=== PATIENT | female | born 1985 | race American Indian/Alaskan Native ===

== ENCOUNTER 2019-01-11 03:43 | Emergency (ER) | payer MEDICAID, OTHER ==
[2019-01-11 03:52] VITALS: BP 132/94
[2019-01-11] MEDS ORDERED: TYLENOL ONE (03:55)
[2019-01-11] MEDS ORDERED: TYLENOL PO ONE (06:15)
[2019-01-11] MEDS ORDERED: ROXICODONE PO ONE (06:32)
--- NOTE | 2019-01-11 06:35 | Emergency Department Report ---
Blank Doc - Documentation Documentation: 34-year-old -[place] female presents to the emergency room complaining of left-sided jaw pain status post 5-year-old kicked her in the jaw. Patient reports the pain is 10 out of 10. X-ray of jaw and Walsh given for pain management.
--- NOTE | 2019-01-11 07:11 | XRay Report ---
PROCEDURE: XR MANDIBLE 4+V TECHNIQUE: 4 views of the mandible were obtained. HISTORY: trauma to jaw COMPARISONS: None FINDINGS: There is no evidence of fracture. The TMJs appear intact. The soft tissues are unremarkable. IMPRESSION: No acute findings.. This document is electronically signed by Tawanda Pascal MD., January 11 2019 07:09:02 AM ET
--- NOTE | 2019-01-11 08:14 | Emergency Department Report ---
ED ENT HPI - General Chief complaint: Dental/Oral Stated complaint: TOOTHACHE Time Seen by Provider: 01/11/19 06:30 Source: patient Mode of arrival: Ambulatory Limitations: No Limitations - History of Present Illness Initial comments: This is a 34-year-old after [place] female presents with right-sided facial pain since this morning. Patient states her 5-year-old son accidentally kicked the right side of her face while sleeping. She is now complaining of pain to the right side jaw. Patient states she was already having issues with her teeth on the right side and this is aggravated symptoms. She denies loss of consciousness, nausea or vomiting, visual changes, swelling, bruising, numbness or tingling. MD complaint: tooth pain -: Last night Location: tooth # (numbers 29 through 32) Severity: severe Severity scale (0 -10): 10 Quality: constant, other (throbbing) Consistency: constant Improves with: none Worsens with: movement Context- Dental: history of dental caries, trauma Associated Symptoms: toothache. denies: fever, cough, gum swelling, pain with swallowing, sore throat, tinnitus, hearing loss, discharge from ear, rhinorrhea - Related Data Home Medications Medication Instructions Recorded Confirmed Last Taken Acetaminophen [Tylenol] 325 mg PO DAILY PRN 09/02/13 09/02/13 08/30/13 325 mg Previous Rx's Medication Instructions Recorded Last Taken Type NIFEdipine XL [Procardia Xl] 60 mg PO QDAY #30 tablet 09/13/13 Unknown Rx Ibuprofen [Motrin 800 MG tab] 800 mg PO Q8HR PRN #20 tablet 01/11/19 Unknown Rx traMADol [Ultram 50 MG tab] 50 mg PO Q6HR PRN #12 tablet 01/11/19 Unknown Rx Allergies Allergy/AdvReac Type Severity Reaction Status Date / Time peanut Allergy Severe Rash Verified 09/02/13 11:21 amoxicillin AdvReac Rash Verified 01/11/19 06:35 ED Dental HPI - General Chief complaint: Dental/Oral Stated complaint: TOOTHACHE Time Seen by Provider: 01/11/19 06:30 Source: patient Mode of arrival: Ambulatory Limitations: No Limitations - Related Data Home Medications Medication Instructions Recorded Confirmed Last Taken Acetaminophen [Tylenol] 325 mg PO DAILY PRN 09/02/13 09/02/13 08/30/13 325 mg Previous Rx's Medication Instructions Recorded Last Taken Type NIFEdipine XL [Procardia Xl] 60 mg PO QDAY #30 tablet 09/13/13 Unknown Rx Ibuprofen [Motrin 800 MG tab] 800 mg PO Q8HR PRN #20 tablet 01/11/19 Unknown Rx traMADol [Ultram 50 MG tab] 50 mg PO Q6HR PRN #12 tablet 01/11/19 Unknown Rx Allergies Allergy/AdvReac Type Severity Reaction Status Date / Time peanut Allergy Severe Rash Verified 09/02/13 11:21 amoxicillin AdvReac Rash Verified 01/11/19 06:35 ED Review of Systems ROS: Stated complaint: TOOTHACHE Other details as noted in HPI Constitutional: denies: chills, fever ENT: dental pain. denies: ear pain, throat pain Respiratory: denies: cough, shortness of breath, wheezing Cardiovascular: denies: chest pain, palpitations Gastrointestinal: denies: abdominal pain, nausea, diarrhea Skin: denies: rash, lesions Neurological: denies: headache, weakness, paresthesias Psychiatric: denies: anxiety, depression ED Past Medical Hx - Past Medical History Previous Medical History?: Yes Hx Hypertension: No Hx Heart Attack/AMI: No Hx Congestive Heart Failure: No Hx Diabetes: No Hx Deep Vein Thrombosis: No Hx Renal Disease: No Hx Sickle Cell Disease: No Hx Seizures: Yes (new onset Sz) Hx Asthma: Yes (as a child) Hx COPD: No Hx HIV: No Additional medical history: , preclampsia - Surgical History Past Surgical History?: Yes Additional Surgical History: X 2 - Social History Smoking Status: Current Every Day Smoker Substance Use Type: Alcohol, Marijuana - Medications Home Medications: Home Medications Medication Instructions Recorded Confirmed Last Taken Type Acetaminophen [Tylenol] 325 mg PO DAILY PRN 09/02/13 09/02/13 08/30/13 History 325 mg NIFEdipine XL [Procardia Xl] 60 mg PO QDAY #30 tablet 09/13/13 Unknown Rx Ibuprofen [Motrin 800 MG tab] 800 mg PO Q8HR PRN #20 tablet 01/11/19 Unknown Rx traMADol [Ultram 50 MG tab] 50 mg PO Q6HR PRN #12 tablet 01/11/19 Unknown Rx ED Physical Exam - General Limitations: No Limitations General appearance: alert, in no apparent distress - ENT ENT exam: Present: mucous membranes moist, other (dental caries in #29 in #30, no mucosal swelling or erythema) - Neck Neck exam: Present: normal inspection - Respiratory Respiratory exam: Present: normal lung sounds bilaterally. Absent: respiratory distress - Cardiovascular Cardiovascular Exam: Present: regular rate, normal rhythm. Absent: systolic murmur, diastolic murmur, rubs, gallop - GI/Abdominal GI/Abdominal exam: Present: soft, normal bowel sounds - Neurological Exam Neurological exam: Present: alert, oriented X3 - Psychiatric Psychiatric exam: Present: normal affect, normal mood - Skin Skin exam: Present: warm, dry, intact, normal color. Absent: rash ED Course Vital Signs 01/11/19 03:51 Temperature 98.8 F Pulse Rate 84 Respiratory 18 Rate Blood Pressure 132/94 [Right] O2 Sat by Pulse 98 Oximetry ED Medical Decision Making - Radiology Data Radiology results: report reviewed PROCEDURE: XR MANDIBLE 4+V TECHNIQUE: 4 views of the mandible were obtained. HISTORY: trauma to jaw COMPARISONS: None FINDINGS: There is no evidence of fracture. The TMJs appear intact. The soft tissues are unremarkable. IMPRESSION: No acute findings.. - Medical Decision Making Patient is stable and was examined by me. Given the Roxicodone and Tylenol once in ER. A x-ray of the mandible was obtained with no acute findings. On focal exam no signs of trauma. Susceptible of dental caries. Start Tramadol and ibuprofen for pain. Discussed plan with patient. She agreed with ER plan. Discharged home stable. Follow up with dentist and referral to PCP for continued care.. Critical care attestation.: If time is entered above; I have spent that time in minutes in the direct care of this critically ill patient, excluding procedure time. ED Disposition Clinical Impression: Pain, dental, Dental caries Disposition: - TO HOME OR SELFCARE Is pt being admited?: No Does the pt Need Aspirin: No Condition: Stable Instructions: Dental Caries (ED), Toothache (ED), Acute dental trauma (ED) Additional Instructions: Follow-up with a dentist. Follow-up with a primary care provider from the referral list below. Prescriptions: Ibuprofen [Motrin 800 MG tab] 800 mg PO Q8HR PRN #20 tablet PRN Reason: Pain , Severe (7-10) traMADol [Ultram 50 MG tab] 50 mg PO Q6HR PRN #12 tablet PRN Reason: Pain Referrals: RODNEY WATKINS MD [Primary Care Provider] - 3-[address] [facility] [Outside] - 3-5 Days AICHA CERVANTES MD [Staff Physician] - 3-5 Days [facility] [Outside] - 3-5 Days [facility] [Outside] - 3-5 Days [facility] [Outside] - 3-5 Days Forms: Work/School Release Form(ED), Accompanied Note Time of Disposition: 08:21
[2019-01-11] MEDS ORDERED: TORADOL IM ONE (08:33)
== END 2019-01-11 08:44 | disposition home or self-care (01) ==
LOC: ED 03:43
DX: K02.9 Dental caries, unspecified (principal); R51 Headache; J45.909 Unspecified asthma, uncomplicated; F17.200 Nicotine dependence, unspecified, uncomplicated; F12.10 Cannabis abuse, uncomplicated; Z91.010 Allergy to peanuts; Z88.1 Allergy status to other antibiotic agents
CPT/HCPCS: 70110; 96372; 99283; J1885